=== PATIENT | male | born 1990 | race Caucasian/White ===

== ENCOUNTER 2017-04-02 18:43 | Inpatient (IN) | payer BC ==
[~2017-04-02 18:43] MED LIST: SUCCINYLCHOLINE CHLORIDE INJ 200 MG/10 ML VIAL ONE
--- NOTE | 2017-04-02 19:10 | ER Document Report ---
ED Medical Screen (RME) - General Chief Complaint: Groin Pain Stated Complaint: HERNIA Time Seen by Provider: 04/02/17 19:08 TRAVEL OUTSIDE OF THE [place] IN LAST 30 DAYS: No - HPI Notes: 04/02/17 19:10 Painful left inguinal hernia patient states normally reduce unable to reduce at this time. Nausea vomiting. - Related Data Allergies/Adverse Reactions: Echinacea Allergy (Verified 04/02/17 18:48) Past Medical History - Past Medical History Cardiac Medical History: Denies: Hx Coronary Artery Disease, Hx Hypertension Pulmonary Medical History: Reports: Hx Asthma Endocrine Medical History: Denies: Hx Diabetes Mellitus Type 1, Hx Diabetes Mellitus Type 2 Renal/ Medical History: Denies: Hx Peritoneal Dialysis Traumatic Medical History: Reports: Hx Fractures - ANKLE, ELBOW - Immunizations Immunizations up to date: Yes Hx Diphtheria, Pertussis, Tetanus Vaccination: Yes Review of Systems - Review of Systems Gastrointestinal: Abdominal pain Physical Exam - Vital signs Vitals: Temp Pulse Resp BP Pulse Ox 99.0 F 87 14 132/79 H 99 04/02/17 18:48 04/02/17 18:48 04/02/17 18:48 04/02/17 18:48 04/02/17 18:48 - Respiratory Respiratory status: No respiratory distress Chest status: Nontender Breath sounds: Normal Course - Re-evaluation Re-evalutation: 04/02/17 19:10 I have greeted and performed a rapid initial assessment of this patient. A comprehensive ED assessment and evaluation of the patient, analysis of test results and completion of the medical decision making process will be conducted by additional ED providers. Patient was made a yellow due to lack of ability to examine the patient concern about a reducible hernia - Vital Signs Vital signs: Temp Pulse Resp BP Pulse Ox 99.0 F 87 14 132/79 H 99 04/02/17 18:48 04/02/17 18:48 04/02/17 18:48 04/02/17 18:48 04/02/17 18:48
[2017-04-02] MEDS ORDERED: FENTANYL CITRATE INJ/PF 100 MCG/2 ML AMPUL IV ONE ×2 (19:17→20:05)
--- NOTE | 2017-04-02 19:40 | ER Document Report ---
ED General - General Chief Complaint: Groin Pain Stated Complaint: HERNIA Time Seen by Provider: 04/02/17 19:08 Notes: Patient is a 26-year-old male with past medical history of a left inguinal hernia that has been small and easily reducible in the past who states abruptly became much larger today after he had an episode of coughing. He now describes a constant, dull, throbbing pain to the left inguinal hernia that is in his scrotum at this time. Nothing improves or worsens the pain. He notes associated nausea, diaphoresis but denies any actual vomiting. No history of similar symptoms in the past. Denies any difficulty focal abdominal pain. He has never had surgery for this in the past. TRAVEL OUTSIDE OF THE [place] IN LAST 30 DAYS: No - Related Data Allergies/Adverse Reactions: Echinacea Allergy (Verified 04/02/17 18:48) Past Medical History - General Information source: Patient - Social History Smoking Status: Never Smoker Frequency of alcohol use: None Drug Abuse: None Lives with: Spouse/Significant other Family History: Reviewed & Not Pertinent Patient has suicidal ideation: No Patient has homicidal ideation: No - Past Medical History Cardiac Medical History: Denies: Hx Coronary Artery Disease, Hx Hypertension Pulmonary Medical History: Reports: Hx Asthma Endocrine Medical History: Denies: Hx Diabetes Mellitus Type 1, Hx Diabetes Mellitus Type 2 Renal/ Medical History: Denies: Hx Peritoneal Dialysis Traumatic Medical History: Reports: Hx Fractures - ANKLE, ELBOW - Immunizations Immunizations up to date: Yes Hx Diphtheria, Pertussis, Tetanus Vaccination: Yes Review of Systems - Review of Systems Notes: Constitutional: Negative for fever. HENT: Negative for sore throat. Eyes: Negative for visual changes. Cardiovascular: Negative for chest pain. Respiratory: Negative for shortness of breath. Gastrointestinal: Positive for nausea, positive for hernia pain Genitourinary: Negative for dysuria. Musculoskeletal: Negative for back pain. Skin: Negative for rash. Neurological: Negative for headaches, weakness or numbness. 10 point ROS negative except as marked above and in HPI. Physical Exam - Vital signs Vitals: Temp Pulse Resp BP Pulse Ox 99.0 F 87 14 132/79 H 99 04/02/17 18:48 04/02/17 18:48 04/02/17 18:48 04/02/17 18:48 04/02/17 18:48 Interpretation: Normal Notes: PHYSICAL EXAMINATION: GENERAL: Appears uncomfortable HEAD: Atraumatic, normocephalic. EYES: Pupils equal round and reactive to light, extraocular movements intact, sclera anicteric, conjunctiva are normal. ENT: nares patent, oropharynx clear without exudates. Moist mucous membranes. NECK: Normal range of motion, supple without lymphadenopathy LUNGS: Breath sounds clear to auscultation bilaterally and equal. No wheezes rales or rhonchi. HEART: Regular rate and rhythm without murmurs ABDOMEN: Soft, nontender, normoactive bowel sounds. No guarding, no rebound. No masses appreciated. : There is a very large left inguinal hernia but a soft, easily compressible with some mild tenderness to palpation. EXTREMITIES: Normal range of motion, no pitting or edema. No cyanosis. NEUROLOGICAL: No focal neurological deficits. Moves all extremities spontaneously and on command. PSYCH: Normal mood, normal affect. SKIN: Warm, Dry, normal turgor, no rashes or lesions noted. Course - Re-evaluation Re-evalutation: 04/02/17 19:39 Presentation of a very large left inguinal hernia that is initially irreducible this time. It is not firm, erythematous or especially tender to palpation to suggest active infarction of the bowel at this time. At this time most consistent with an incarcerated but not strangulated hernia. Patient is placed in reverse Trendelenburg position, IV fentanyl be administered. Ice pack has been applied. Will again attempt to reduce shortly. If I am unable to successfully reduce the hernia will contact surgery business administration teacher for surgical management. 04/02/17 20:05 Hernia unable to be reduced after 15 minutes of ice compression, iv analgesia, and direct pressure. Will consult with for surgical management. 04/02/17 20:27 Hernia continues to be irreducible at the bedside. The surgeon has also tried unsuccessfully. Patient will be admitted to the operating room for surgical management - Vital Signs Vital signs: Temp Pulse Resp BP Pulse Ox 99.0 F 87 14 132/79 H 99 04/02/17 18:48 04/02/17 18:48 04/02/17 18:48 04/02/17 18:48 04/02/17 18:48 Discharge - Discharge Clinical Impression: Incarcerated inguinal hernia Condition: Fair Disposition: ADMITTED OBSERVATION Admitting Provider: Surgicalist - [facility] Unit Admitted: OR
[2017-04-02] MEDS ORDERED: RINGERS SOLUTION,LACTATED 1,000 ML IV ONE (20:26)
[2017-04-02] MEDS ORDERED: ONDANSETRON HCL INJ/PF 4 MG/2 ML SDV IV ONE (20:27)
[2017-04-02] MEDS ORDERED: FENTANYL CITRATE INJ/PF 100 MCG/2 ML AMPUL IV PRN ×4 (20:27→21:46)
[2017-04-02] MEDS ORDERED: CEFAZOLIN 1 GM/D5W RTU 50 ML IV ONE (20:48)
[2017-04-02] MEDS ORDERED: CEFAZOLIN 1 GM/D5W RTU 1 GM/50 ML RTUPB IV ONE (20:48)
--- NOTE | 2017-04-02 20:52 | PDOC H&P ---
History of Present Illness Admission Date/PCP: 04/02/17 20:44 Patient complains of: Incarcerated left inguinal hernia History of Present Illness: VIOLA RILEY is a 26 year old male presented to the emergency department with a 6-1/2 hour history of incarcerated left inguinal hernia. Patient has a known history of hernia left inguinal area he was told in the past that he did not need to have it fixed unless it became problematic. Today he coughed hard and the left inguinal hernia bulge and could not be reduced. He was brought to the emergency department where he had a mass in the left inguinal area. Multiple attempts were made to reduce this hernia including Trendelenburg position, ice packs, pain medication, sedation, gentle pressure, and all were unsuccessful. Surgery is consulted. Patient was assessed, found to have an incarcerated inguinal hernia with pain with tenderness, and surgery was recommended tonight. Past Medical History Cardiac Medical History: Denies: Coronary Artery Disease, Hypertension Pulmonary Medical History: Reports: Asthma Endocrine Medical History: Denies: Diabetes Mellitus Type 1, Diabetes Mellitus Type 2 Social History Lives with: Spouse/Significant other Smoking Status: Never Smoker Family History Family History: Reviewed & Not Pertinent Parental Family History Reviewed: Yes Children Family History Reviewed: Yes Sibling(s) Family History Reviewed.: Yes Medication/Allergy Home Medications: Oxycodone HCl/Acetaminophen [Percocet 5-325 mg Tablet] 1 - 2 tab PO Q4H PRN #15 tablet 04/29/16 Penicillin V Potassium [Penicillin Vk 500 mg Tablet] 500 mg PO TID #20 tablet Promethazine HCl [Phenergan 25 mg Tablet] 1 - 2 tab PO Q6H PRN #15 tablet Amoxicillin/Potassium Clav [Augmentin 875-125 Tablet] 1 each PO BID #14 tablet 05/29/16 Meclizine HCl 25 mg PO TID PRN #15 tablet 05/29/16 Allergies/Adverse Reactions: Echinacea Allergy (Verified 04/02/17 18:48) Review of Systems Constitutional: ABSENT: chills, fever(s), headache(s), weight gain, weight loss Eyes: ABSENT: visual disturbances Ears: ABSENT: hearing changes Respiratory: ABSENT: cough, hemoptysis Gastrointestinal: PRESENT: other - Patient had 1 episode of nausea and vomiting after onset of incarceration early this afternoon Genitourinary: PRESENT: as per HPI Musculoskeletal: ABSENT: joint swelling Integumentary: ABSENT: rash, wounds Neurological: ABSENT: abnormal gait, abnormal speech, confusion, dizziness, focal weakness, syncope Psychiatric: ABSENT: anxiety, depression, homidical ideation, suicidal ideation Endocrine: ABSENT: cold intolerance, heat intolerance, polydipsia, polyuria Physical Exam Vital Signs: Temp Pulse Resp BP Pulse Ox 99.0 F 87 14 132/79 H 99 04/02/17 18:48 04/02/17 18:48 04/02/17 18:48 04/02/17 18:48 04/02/17 18:48 General appearance: PRESENT: mild distress Head exam: PRESENT: normocephalic Eye exam: PRESENT: EOMI Ear exam: PRESENT: normal external ear exam Neck exam: PRESENT: full ROM Cardiovascular exam: PRESENT: RRR Pulses: PRESENT: normal carotid pulses, normal radial pulses GI/Abdominal exam: PRESENT: diminished bowel sounds, soft Rectal exam: PRESENT: deferred Gentrourinary exam: PRESENT: other - The penis is circumcised; the right testicle is readily palpable. The left hemiscrotum is full of incarcerated soft tissue. Moderately tender. Multiple attempts were made to reduce it but were unsuccessful. The overlying skin is intact, viable. The left testicle appears intact. Musculoskeletal exam: PRESENT: ambulatory, full ROM Neurological exam: PRESENT: alert, altered, awake Psychiatric exam: PRESENT: appropriate affect Skin exam: PRESENT: intact Assessment & Plan - Diagnosis (1) Incarcerated inguinal hernia Is this a current diagnosis for this admission?: YesPlan: 1. Proceed with operative repair, open left inguinal hernia, with probable mesh insertion, general anesthesia, [facility]. I reviewed the mechanics of the operation, as well as of the results when she was benefits alternatives including bleeding, infection, testicular injury, chronic pain. The patient understands and agrees to proceed. - Time Time Spent: 50 to 70 Minutes Critical Time spent with patient: 15-24 minutes Medications reviewed and adjusted accordingly: Yes Anticipated discharge: Home - Inpatient Certification Based on my medical assessment, after consideration of the patient's comorbidities, presenting symptoms, or acuity I expect that the services needed warrant INPATIENT care.: Yes I certify that my determination is in accordance with my understanding of Medicare's requirements for reasonable and necessary INPATIENT services [42 CFR 412.3e].: Yes Medical Necessity: Need For IV Fluids, Need for Pain Control, Need for IV Antibiotics, Need for Surgery
[2017-04-02] MEDS ORDERED: BUPIVACAINE HCL 0.25 % INJ/PF (2.5 MG/1 ML) 30 ML VIAL ONE (20:58)
[2017-04-02] MEDS ORDERED: BUPIVACAINE INJ/PF LIPOSOME/PF 266 MG/20 ML SDV ONE (20:58)
[2017-04-02] MEDS ORDERED: PROPOFOL INJ 200 MG/20 ML VIAL IV ONE (21:05)
[2017-04-02] MEDS ORDERED: MIDAZOLAM 2 MG/2 ML INJ ONE (21:05)
[2017-04-02] MEDS ORDERED: IBUPROFEN INJ 800 MG/8 ML VIAL IV ONE (21:05)
[2017-04-02] MEDS ORDERED: DEXAMETHASONE SOD PHOSPHATE INJ 4 MG/1 ML VIAL ONE (21:05)
[2017-04-02] MEDS ORDERED: ONDANSETRON HCL INJ/PF 4 MG/2 ML SDV ONE (21:05)
[2017-04-02] MEDS ORDERED: FENTANYL CITRATE INJ/PF 100 MCG/2 ML AMPUL ONE (21:05)
[2017-04-02] MEDS ORDERED: MORPHINE SULFATE 10 MG/ML INJ ONE (21:06)
[2017-04-02] MEDS ORDERED: CEFAZOLIN INJ 1 GM VIAL ONE (21:38)
[2017-04-02] MEDS ORDERED: MORPHINE SULFATE 10 MG/ML INJ IV PRN (21:46)
[2017-04-02] MEDS ORDERED: PROMETHAZINE HCL INJ 25 MG/1 ML VIAL IV PRN ×2 (21:46)
[2017-04-02] MEDS ORDERED: MEPERIDINE HCL/PF INJ 25 MG/1 ML DISP.SYRIN IV PRN (21:46)
[2017-04-02] MEDS ORDERED: OXYCODONE-ACETAMINOPHEN 5-325 MG TABLET PO PRN (21:46)
[2017-04-02] MEDS ORDERED: DIPHENHYDRAMINE HCL 50 MG/ML VIAL IV PRN (21:46)
[2017-04-02] MEDS ORDERED: BUPIVACAINE INJ/PF LIPOSOME/PF 266 MG/20 ML SDV INJ ONE (22:01)
[2017-04-02] MEDS ORDERED: BUPIVACAINE HCL 0.25 % INJ/PF (2.5 MG/1 ML) 30 ML VIAL INJ ONE (22:35)
[2017-04-02] MEDS ORDERED: ONDANSETRON HCL INJ/PF 4 MG/2 ML SDV IV PRN (22:47)
--- NOTE | 2017-04-02 22:57 | Operative Report ---
Operative Report DATE OF SURGERY: 04/02/17 PREOPERATIVE DIAGNOSIS: Incarcerated left inguinal hernia POSTOPERATIVE DIAGNOSIS: Same, indirect OPERATION: 1. Exploration left inguinal region. 2. Reduction of left inguinal hernia. 3. Repair of indirect left inguinal hernia with [facility] Prolene hernia system, large SURGEON: VANI CLAUDIO ANESTHESIA: GA COMPLICATIONS: None ESTIMATED BLOOD LOSS: scant INTRAOPERATIVE FINDINGS: See below PROCEDURE: The patient was seen in the preop holding area with a left inguinal area was marked. The patient was then taken to the operating room where general anesthesia was induced. The left inguinal area was shaved prepped and draped in sterile fashion. Surgical plan on surgical time out conducted. The left inguinal hernia which had previously been incarcerated was now able to be reduced manually. Landmarks were identified, and markings made for planned left inguinal herniorrhaphy incision. The skin was anesthetized with quarter percent Marcaine. A standard left inguinal herniorrhaphy incision was made with a #10 blade. Subcutaneous tissue Larry's fascia divided with electrocautery. Deeper subcutaneous tissue, and fascia anesthetized with quarter percent Marcaine. Subcutaneous tissue overlying the external oblique aponeurosis was exposed. The tissue around the external inguinal ring was opened. The external oblique aponeurosis was opened with a 10 blade, and superior and inferior fascial flaps were developed bluntly. The findings were significant for attenuated cremasteric muscle. The ilioinguinal nerve was identified and spared throughout the dissection. We interrogated the cord contents and identified the large inguinal hernia sac. This was bluntly dissected away from all surrounding tissues. We focused on the more proximal side of the sac and it from the cord structures very carefully under excellent visualization. Eventually I opened up the sac and chased of the proximal component all the way to supportive origin, that was lateral to the inferior epigastric vessels consistent with an indirect inguinal hernia. We continued to dissect all the surrounding tissue free from the sac which was a wide mouth defect. We explored it by palpation found communicating with the peritoneal cavity without any visceral contents. The sac was tied off after rotating it on its base with a 2-0 Vicryl suture. The sac was amputated and passed off to pathology. An associated generous lipoma of the cord was mobilized off of the cord structures to its point of origination lateral to the hernia sac amputation site. It was tied off at its base with 2-0 Vicryl and amputated passed off to pathology We now checked the floor the inguinal canal and it was weak but not effective the remnant distal portion of the hernia sac was now resected from the surrounding cord structures and sent to pathology in the same container A suitable site for placement of the mesh was chosen in the retroperitoneal space which was bluntly lateral to the inferior epigastric vessels. The space was created very effectively. A large [employer] Prolene hernia system was now brought onto the field. The inner component of the mesh was deployed into the retroperitoneal space. The outer component was trimmed the appropriate configuration and sewn to Poupart's ligament and conjoined tendon. An upside down U was created in the mesh at the 6 o'clock position to accommodate the cord structures and the new internal ring was therefore created; the new internal ring was not too tight. At this point without the operation was complete. External oblique aponeurosis closed with 2-0 Vicryl Larry's fascia and skin with 3-0 Vicryl skin glue applied and exparel 20 mL injected into the tissues. Patient tolerated procedure well. Extubated and taken to recover stable condition.
[2017-04-03] MEDS: MORPHINE SULFATE 10 MG/ML INJ IV PRN ×2 (00:22→04:22)
[2017-04-03] MEDS: OXYCODONE-ACETAMINOPHEN 5-325 MG TABLET PO PRN ×2 (08:43→12:36)
[2017-04-03] MEDS ORDERED: OXYCODONE-ACETAMINOPHEN 5-325 MG TABLET PO PRN (08:52)
[2017-04-03 18:38] VITALS: BP 124/57
--- NOTE | 2017-04-04 01:33 | DISCHARGE SUMMARY E ---
Discharge Summary NAME: VIOLA RILEY : 1990 AGE: 26Y ADMITTED: 04/02/2017 DISCHARGED: 04/03/2017 FINAL DIAGNOSIS: Incarcerated left inguinal hernia. PROCEDURE: Reduction of left incarcerated inguinal hernia, repair of indirect left inguinal hernia with [facility] Prolene hernia system. SURGEON: Dr. Godoy SUMMARY: This is a 26-year-old male who had surgery for incarcerated left inguinal hernia on 04/02/2017. The hernia defect was an indirect left inguinal hernia repaired with Prolene mesh. Postoperatively, patient had considerable amount of pain in the left groin. He was able to tolerate a regular diet the next day. The pain is controlled with p.o. pain medications at the time of discharge on 04/03/2017. He was advised not to do any heavy lifting more than 10-15 pounds for the next 2 weeks. He will be seen in the Surgical Clinic in 1-2 weeks, care of Dr. Godoy. Prescription for Percocet was given at the time of his discharge. DICTATING PHYSICIAN: ANN-MARIE TORRES M.D. [id number] PHY#: [id number] ID: [id number] JOB#: [id number] ACCT: [id number] cc:Luz Maria LOPES M.D. >
== END 2017-04-03 19:10 | disposition home or self-care (01) | DRG 352 ==
LOC: ER 18:43 → EH 20:44 → OBSVTOIN 22:47 → 4S 23:50
PROVIDERS: ADMIT Surgery; ATTEND Surgery
PROC: 0YU60JZ Supplement Left Inguinal Region with Synthetic Substitute, Open Approach (ICD-10-PCS; principal; 2017-04-02 21:45)
DX: K40.30 Unilateral inguinal hernia, with obstruction, without gangrene, not specified as recurrent (principal); J45.909 Unspecified asthma, uncomplicated; Z79.899 Other long term (current) drug therapy; Z88.8 Allergy status to other drugs, medicaments and biological substances
CPT/HCPCS: 830; 88302; 96374; 99284; C1781; C9290; J0330; J0690; J1100; J1741; J2250; J2270; J2405; J2704; J3010; J7120

== ENCOUNTER 2017-06-26 17:31 | Emergency (ER) | payer BC ==
--- NOTE | 2017-06-26 18:24 | ER Document Report ---
HPI - HPI Pain Level: 4 - REPRODUCTIVE Reproductive: DENIES: : - DERM Skin Color: Normal Past Medical History - Social History Family History: Reviewed & Not Pertinent - Past Medical History Cardiac Medical History: Denies: Hx Coronary Artery Disease, Hx Hypertension Pulmonary Medical History: Reports: Hx Asthma Endocrine Medical History: Denies: Hx Diabetes Mellitus Type 1, Hx Diabetes Mellitus Type 2 Renal/ Medical History: Denies: Hx Peritoneal Dialysis Traumatic Medical History: Reports: Hx Fractures - ANKLE, ELBOW - Immunizations Immunizations up to date: Yes Hx Diphtheria, Pertussis, Tetanus Vaccination: Yes Vertical Provider Document - INFECTION CONTROL TRAVEL OUTSIDE OF THE [place] IN LAST 30 DAYS: No - RESPIRATORY O2 Sat by Pulse Oximetry: 99 Course - Vital Signs Vital signs: Temp Pulse Resp BP Pulse Ox 97.8 F 61 16 143/96 H 99 06/26/17 17:35 06/26/17 17:35 06/26/17 17:35 06/26/17 17:35 06/26/17 17:35
--- NOTE | 2017-06-26 18:30 | ER Document Report ---
HPI - HPI Patient complains to provider of: landed flat foot playing basketball, heard/ felt cracking Onset: Other - 5 days ago Onset/Duration: Sudden Quality of pain: Throbbing Pain Level: 4 Context: 26-year-old male complaining of left ankle and foot pain after he landed flat- footed and caused a cracking and swelling to his ankle and foot 5 days ago. He has been walking on it with a limp. The swelling is gone down some but the pain is worse. Associated Symptoms: None Exacerbated by: Walking Relieved by: Denies Similar symptoms previously: No Recently seen / treated by doctor: No - ROS ROS below otherwise negative: Yes Systems Reviewed and Negative: Yes All other systems reviewed and negative - REPRODUCTIVE Reproductive: DENIES: : - DERM Skin Color: Normal Past Medical History - General Information source: Patient - Social History Smoking Status: Unknown if Ever Smoked Frequency of alcohol use: None Drug Abuse: None Lives with: Family Family History: Reviewed & Not Pertinent Pulmonary Medical History: Reports: Hx Asthma Renal/ Medical History: Denies: Hx Peritoneal Dialysis Traumatic Medical History: Reports: Hx Fractures - ANKLE, ELBOW Past Surgical History: Reports: Hx Inguinal Hernia - repaired - Immunizations Immunizations up to date: Yes Hx Diphtheria, Pertussis, Tetanus Vaccination: Yes Vertical Provider Document - CONSTITUTIONAL Agree With Documented VS: Yes Exam Limitations: No Limitations - INFECTION CONTROL TRAVEL OUTSIDE OF THE [place] IN LAST 30 DAYS: No - HEENT HEENT: Normocephalic - NECK Neck: Supple - RESPIRATORY O2 Sat by Pulse Oximetry: 99 - MUSCULOSKELETAL/EXTREMETIES Musculoskeletal/Extremeties: MAEW, FROM, Tender - medial maleolus and medial/ dorsl proximal foot, and over the medial tarsals, non tender heel squeeze. achilles intact. FROM left knee and toes. 2+ DP., Edema - NEURO Level of Consciousness: Awake, Alert, Appropriate - DERM Integumentary: Warm, Dry Course - Re-evaluation Re-evalutation: 06/26/17 19:31 xrays are negative per radiologist but I am concerned due to amount of pain 06/26/17 19:36 - Vital Signs Vital signs: Temp Pulse Resp BP Pulse Ox 97.8 F 61 16 143/96 H 99 06/26/17 17:35 06/26/17 17:35 06/26/17 17:35 06/26/17 17:35 06/26/17 18:24 Procedures - Immobilization Left Ankle Time completed: 20:08 Pre-Proc Neuro Vasc Exam: Normal Immobilizer type: Posterior ankle Performed by: PCT Post-Proc Neuro Vasc Exam: Normal Alignment checked and good: Yes Discharge - Discharge Clinical Impression: Injury of left ankle and foot Qualifiers: Encounter type: initial encounter Qualified Code(s): S99.912A - Unspecified injury of left ankle, initial encounter Condition: Good Disposition: HOME, SELF-CARE Instructions: Use of Crutches ([facility]), Sprained Ankle ([facility]), Sprain ([facility]), Temporary Splint ([facility]), Splint Precautions ([facility]) Additional Instructions: call for appointment with the orthopedic doctor this week you may need further images splint crutches, non weight bearing motrin and tylenol for pain Please complete the patient satisfaction survey if you get one, and return it.. If you do not receive a survey, then you can go to the [facility] website, [email or web address] and place your comments about your very good care. Thank you very much. It was a pleasure being your medical provider today. Prescriptions: Ibuprofen [Motrin 800 mg Tablet] 800 mg PO Q8HP PRN #30 tablet PRN Reason: Referrals: RAJAT RICHMOND MD [ACTIVE STAFF] - Follow up as needed
--- NOTE | 2017-06-26 19:21 | RADIOLOGY REPORT (SQ) ---
EXAM DESCRIPTION: ANKLE LEFT COMPLETE COMPLETED DATE/TIME: 06/26/2017 7:10 pm REASON FOR STUDY: injured 5 days ago COMPARISON: None. NUMBER OF VIEWS: Three views. TECHNIQUE: AP, lateral, and oblique radiographic images acquired of the left ankle. LIMITATIONS: None. FINDINGS: MINERALIZATION: Normal. BONES: No acute fracture or dislocation. No worrisome bone lesions. JOINTS: No effusions. SOFT TISSUES: No soft tissue swelling. No foreign body. OTHER: No other significant finding. IMPRESSION: NEGATIVE STUDY OF THE LEFT ANKLE. NO RADIOGRAPHIC EVIDENCE OF ACUTE INJURY. TECHNICAL DOCUMENTATION: JOB ID: [id number] [employer]- All Rights Reserved
--- NOTE | 2017-06-26 19:22 | RADIOLOGY REPORT (SQ) ---
EXAM DESCRIPTION: FOOT LEFT COMPLETE COMPLETED DATE/TIME: 06/26/2017 7:10 pm REASON FOR STUDY: injured 5 days ago COMPARISON: None. NUMBER OF VIEWS: Three views. TECHNIQUE: AP, lateral and oblique radiographic images acquired of the left foot. LIMITATIONS: None. FINDINGS: MINERALIZATION: Normal. BONES: No acute fracture or dislocation. No worrisome bone lesions. JOINTS: No effusions. SOFT TISSUES: No soft tissue swelling. No foreign body. OTHER: No other significant finding. IMPRESSION: NEGATIVE STUDY OF THE LEFT FOOT. NO RADIOGRAPHIC EVIDENCE OF ACUTE INJURY. TECHNICAL DOCUMENTATION: JOB ID: [id number] [employer]- All Rights Reserved
[2017-06-26 20:32] VITALS: BP 140/83
== END 2017-06-26 20:30 | disposition home or self-care (01) ==
LOC: ER 17:31
PROC: 2W3RX1Z Immobilization of Left Lower Leg using Splint (ICD-10-PCS; principal; 2017-06-26)
DX: S99.912A Unspecified injury of left ankle, initial encounter (principal); X58.XXXA Exposure to other specified factors, initial encounter; Y93.67 Activity, basketball; M25.572 Pain in left ankle and joints of left foot; M79.672 Pain in left foot; J45.909 Unspecified asthma, uncomplicated
CPT/HCPCS: 99283

== ENCOUNTER 2017-10-23 19:57 | Emergency (ER) | payer SELFPAY ==
[2017-10-23] MEDS ORDERED: NORMAL SALINE 1000 ML 1,000 ML IV ONE (20:46)
--- NOTE | 2017-10-23 20:48 | ER Document Report ---
ED Medical Screen (RME) - General Chief Complaint: Abdominal and groin pain Stated Complaint: ABDOMINAL PAIN Time Seen by Provider: 10/23/17 20:46 Notes: Patient had a left inguinal hernia repair here in February 2017. He states he is now having pain over the incision site. He states he is also been told that he has a right inguinal hernia and is been having pain and bulging on that side. He states in addition a month and a half ago he started to have loose stool and ever since he has had no more formed stools for the last 1-1/2 months. He also states that he constantly leaks stool for the last month and a half. TRAVEL OUTSIDE OF THE [place] IN LAST 30 DAYS: No - Related Data Allergies/Adverse Reactions: Echinacea Allergy (Verified 04/02/17 18:48) Past Medical History - Past Medical History Cardiac Medical History: Denies: Hx Coronary Artery Disease, Hx Hypertension Pulmonary Medical History: Reports: Hx Asthma Endocrine Medical History: Denies: Hx Diabetes Mellitus Type 1, Hx Diabetes Mellitus Type 2 Renal/ Medical History: Denies: Hx Peritoneal Dialysis Traumatic Medical History: Reports: Hx Fractures - ANKLE, ELBOW Past Surgical History: Reports: Hx Inguinal Hernia - repaired - Immunizations Immunizations up to date: Yes Hx Diphtheria, Pertussis, Tetanus Vaccination: Yes Physical Exam - Vital signs Vitals: Temp Pulse Resp BP Pulse Ox 98.6 F 73 16 140/87 H 99 10/23/17 20:29 10/23/17 20:29 10/23/17 20:29 10/23/17 20:29 10/23/17 20:29 Course - Vital Signs Vital signs: Temp Pulse Resp BP Pulse Ox 98.6 F 73 16 140/87 H 99 10/23/17 20:29 10/23/17 20:29 10/23/17 20:29 10/23/17 20:29 10/23/17 20:29
[2017-10-23 21:30] LABS: APPEARANCE,URINE CLEAR; BILIRUBIN,URINE NEGATIVE (NEGATIVE); GLUCOSE, URINE NEGATIVE (NEGATIVE); KETONES,URINE NEGATIVE (NEGATIVE); LEUKOCYTE ESTERASE,URINE NEGATIVE (NEGATIVE); NITRITE,URINE NEGATIVE (NEGATIVE); PROTEIN,URINE NEGATIVE (NEGATIVE); URINE SPECIFIC GRAVITY 1.023; UROBILINOGEN,URINE NEGATIVE mg/dL (<2.0)
[2017-10-23 21:42] LABS: ABSOLUTE EOSINOPHILS # (AUTO) 0.1 10^3/uL (0.0-0.6); ABSOLUTE LYMPHOCYTES (AUTO) 1.5 10^3/uL (0.5-4.7); ABSOLUTE MONOCYTES (AUTO) 0.5 10^3/uL (0.1-1.4); ABSOLUTE NEUT (AUTO) 3.4 10^3/uL (1.7-8.2); BASOPHILS % (AUTO) 0.8 % (0-2); EOSINOPHILS % (AUTO) 1.3 % (0-6); HEMATOCRIT 45.7 % (37.9-51.0); HEMOGLOBIN 15.6 g/dL (13.5-17.0); HGB HCT DIFFERENCE 1.1; LYMPHOCYTES % (AUTO) 26.6 % (13-45); MEAN CORPUSCULAR HEMOGLOBIN 30.8 pg (27.0-33.4); MEAN CORPUSCULAR HGB CONC 34.1 g/dL (32.0-36.0); MEAN CORPUSCULAR VOLUME 90 fl (80-97); MONOCYTES % (AUTO) 9.5 % (3-13); RED BLOOD COUNT 5.05 10^6/uL (4.35-5.55); RED CELL DISTRIBUTION WIDTH 13.4 % (11.5-14.0); SEGMENTED NEUTROPHILS % (AUTO) 61.8 % (42-78); WHITE BLOOD COUNT 5.6 10^3/uL (4.0-10.5)
[2017-10-23 21:53] LABS: ALANINE AMINOTRANSFERASE 57 U/L (21-72); ALBUMIN 4.7 g/dL (3.5-5.0); ALKALINE PHOSPHATASE 64 U/L (38-126); ANION GAP 14 (5-19); ASPARTATE AMINO TRANSFERASE 28 U/L (17-59); BILIRUBIN,DIRECT 0.3 mg/dL (0.0-0.4); BILIRUBIN,TOTAL 0.8 mg/dL (0.2-1.3); BLOOD UREA NITROGEN 15 mg/dL (7-20); CALCIUM 9.3 mg/dL (8.4-10.2); CARBON DIOXIDE 29 mmol/L (22-30); CHLORIDE 101 mmol/L (98-107); CREATININE RESULT 0.91 mg/dL (0.52-1.25); GLUCOSE 73 mg/dL (75-110); POTASSIUM 4.1 mmol/L (3.6-5.0); SODIUM 143.8 mmol/L (137-145)
--- NOTE | 2017-10-23 21:58 | ER Document Report ---
ED GI/ - General Chief Complaint: Abdominal and groin pain Stated Complaint: ABDOMINAL PAIN Time Seen by Provider: 10/23/17 20:46 Mode of Arrival: Ambulatory Information source: Patient Notes: 26-year-old male complaining of left lower quadrant abdominal pain, left groin pain near the hernia repair last year, and right groin pain. He is concerned that the right mild hernia that he had is getting worse. No scrotal or testicular pain. He has been having alternating constipation and diarrhea and is concerned about that. No fever or chills. No nausea or vomiting. TRAVEL OUTSIDE OF THE [place] IN LAST 30 DAYS: No - Related Data Allergies/Adverse Reactions: Echinacea Allergy (Verified 04/02/17 18:48) Past Medical History - General Information source: Patient - Social History Smoking Status: Current Every Day Smoker Chew tobacco use (# tins/day): No Frequency of alcohol use: Occasional Drug Abuse: Marijuana Lives with: Family Family History: Reviewed & Not Pertinent Patient has suicidal ideation: No Patient has homicidal ideation: No Pulmonary Medical History: Reports: Hx Asthma Renal/ Medical History: Denies: Hx Peritoneal Dialysis Traumatic Medical History: Reports: Hx Fractures - ANKLE, ELBOW Past Surgical History: Reports: Hx Inguinal Hernia - repaired - Immunizations Immunizations up to date: Yes Hx Diphtheria, Pertussis, Tetanus Vaccination: Yes Review of Systems - Review of Systems Constitutional: No symptoms reported EENT: No symptoms reported Cardiovascular: No symptoms reported Respiratory: No symptoms reported Gastrointestinal: See HPI Genitourinary: No symptoms reported Male Genitourinary: No symptoms reported Musculoskeletal: No symptoms reported Skin: No symptoms reported Hematologic/Lymphatic: No symptoms reported Neurological/Psychological: No symptoms reported Physical Exam - Vital signs Vitals: Temp Pulse Resp BP Pulse Ox 98.6 F 73 16 140/87 H 99 10/23/17 20:29 10/23/17 20:29 10/23/17 20:29 10/23/17 20:29 10/23/17 20:29 Interpretation: Normal - General General appearance: Appears well, Alert - HEENT Head: Normocephalic, Atraumatic Eyes: Normal Pupils: PERRL Neck: Supple. No: Lymphadenopathy - Respiratory Respiratory status: No respiratory distress Chest status: Nontender Breath sounds: Normal Chest palpation: Normal - Cardiovascular Rhythm: Regular Heart sounds: Normal auscultation Murmur: No - Abdominal Inspection: Normal Distension: No distension Bowel sounds: Normal Tenderness: Tender - minimal LLQ, non tender inquinal areas. Organomegaly: No organomegaly - Genitourinary Inspection: Normal Tenderness: Nontender Scrotum: Normal - Back Back: Normal, Nontender. No: CVA tenderness - Extremities General upper extremity: Normal inspection, Nontender, Normal color, Normal ROM , Normal temperature General lower extremity: Normal inspection, Nontender, Normal color, Normal ROM , Normal temperature, Normal weight bearing. No: Hector's sign - Neurological Neuro grossly intact: Yes Cognition: Normal Orientation: AAOx4 Nikolai Coma Scale Eye Opening: Spontaneous [place] Coma Scale Verbal: Oriented [place] Coma Scale Motor: Obeys Commands Nikolai Coma Scale Total: 15 Speech: Normal Motor strength normal: LUE, RUE, LLE, RLE Sensory: Normal - Psychological Associated symptoms: Normal affect, Normal mood - Skin Skin Temperature: Warm Skin Moisture: Dry Skin Color: Normal Skin irregularity: negative: Rash Course - Re-evaluation Re-evalutation: 10/24/17 Labs normal. Non tender after IV fluid, will give referral to gastroenterology 10/24/17 03:31 - Vital Signs Vital signs: Temp Pulse Resp BP Pulse Ox 98.1 F 63 16 133/72 H 98 10/24/17 00:11 10/24/17 00:11 10/23/17 20:29 10/24/17 00:11 10/24/17 00:11 - Laboratory Result Diagrams: 10/23/17 21:25 10/23/17 21:25 Laboratory results interpreted by me: 10/23/17 21:25 Glucose 73 L Discharge - Discharge Clinical Impression: Left lower quadrant abdominal pain, Bilateral groin pain Irritable bowel Qualifiers: Irritable bowel syndrome type: with both diarrhea and constipation Qualified Code(s): K58.2 - Mixed irritable bowel syndrome Condition: Good Disposition: HOME, SELF-CARE Instructions: Abdominal Pain ([facility]), Constipation ([facility]), Diarrhea, Nonspecific ( [facility]), Irritable Bowel Syndrome ([facility]) Additional Instructions: see spares scheduler if you continue to have constipation, diarrhea problems to er if increased pain copy of labs given to you drink plenty of fluids Forms: Return to Work Referrals: LEXII GOEMZ MD [ACTIVE STAFF] - Follow up as needed
[2017-10-24 00:20] VITALS: BP 133/72
== END 2017-10-24 00:11 | disposition home or self-care (01) ==
LOC: ER 19:57
DX: K58.2 Mixed irritable bowel syndrome (principal); R10.32 Left lower quadrant pain; F17.200 Nicotine dependence, unspecified, uncomplicated
CPT/HCPCS: 99284; 96360; 36415; 85025; 80053; 81001; J7030

== ENCOUNTER 2018-04-14 17:53 | Emergency (ER) | payer SELFPAY ==
--- NOTE | 2018-04-14 18:41 | ER Document Report ---
ED Medical Screen (RME) - General Chief Complaint: Ankle Pain Stated Complaint: FALL / LEFT ANKLE INJURY Time Seen by Provider: 04/14/18 18:41 Mode of Arrival: Ambulatory Information source: Patient Notes: This is a 27-year-old man that presents to the emergency room with left ankle pain. He was in [place] for the weekend and on early Sunday morning (at 3 AM) he was jumping over a fence and he landed on his left lower extremity which inverted and then everted and he collapsed to the ground immediately. He has pain to the left ankle. There is swelling. Injury occurred: Over 36 hours ago Past medical history: None Medicines: None TRAVEL OUTSIDE OF THE [place] IN LAST 30 DAYS: No - HPI Onset: Just prior to arrival Onset/Duration: Gradual Quality of pain: Dull Severity: Moderate Pain Level: 2 Associated Symptoms: denies: Chest pain, Shortness of breath Exacerbated by: Movement Relieved by: Denies Similar symptoms previously: No Recently seen / treated by doctor: No - Related Data Smoking: Non-smoker Frequency of alcohol use: None Drug Abuse: None Allergies/Adverse Reactions: Echinacea Allergy (Verified 04/14/18 17:55) Past Medical History - General Information source: Patient - Social History Cigarette use (# per day): No Chew tobacco use (# tins/day): No Frequency of alcohol use: Occasional Drug Abuse: None Lives with: Family Family history: None - Past Medical History Cardiac Medical History: Denies: Hx Coronary Artery Disease, Hx Hypertension Pulmonary Medical History: Reports: Hx Asthma Endocrine Medical History: Denies: Hx Diabetes Mellitus Type 1, Hx Diabetes Mellitus Type 2 Renal/ Medical History: Denies: Hx Peritoneal Dialysis Traumatic Medical History: Reports: Hx Fractures - ANKLE, ELBOW Past Surgical History: Reports: Hx Abdominal Surgery - hernia repair, Hx Inguinal Hernia - repaired - Immunizations Immunizations up to date: Yes Hx Diphtheria, Pertussis, Tetanus Vaccination: Yes Review of Systems - Review of Systems Constitutional: denies: Chills, Fever EENT: No symptoms reported Cardiovascular: No symptoms reported Respiratory: No symptoms reported Gastrointestinal: No symptoms reported Genitourinary: No symptoms reported Male Genitourinary: No symptoms reported Musculoskeletal: See HPI Skin: No symptoms reported Hematologic/Lymphatic: No symptoms reported Neurological/Psychological: No symptoms reported Physical Exam - Vital signs Vitals: Temp Pulse Resp BP Pulse Ox 98.5 F 71 16 132/90 H 98 04/14/18 18:00 04/14/18 18:00 04/14/18 18:00 04/14/18 18:00 04/14/18 18:00 Notes: Physical exam: GENERAL: 27-year-old man, alert and oriented 3, no acute distress HEAD: Atraumatic, normocephalic. EXTREMITIES: Left knee: Full range of motion, no tenderness. Left tib-fib: No tenderness to palpation over the proximal fibula left ankle: Positive swelling both laterally and medially. Patient does have tenderness over the malleoli bilaterally. There is no obvious crepitus. He does have some tenderness over the midfoot without crepitus or deformity. Good cap refill. Good sensation. Good DP pulse SKIN: Warm, Dry, normal turgor, no rashes or lesions noted. Course - Vital Signs Vital signs: Temp Pulse Resp BP Pulse Ox 98.6 F 66 15 137/86 H 99 04/14/18 19:34 04/14/18 19:34 04/14/18 19:34 04/14/18 19:34 04/14/18 19:34 - Diagnostic Test Radiology reviewed: Image reviewed, Reports reviewed - X-ray showed no obvious fracture Doctor's Discharge - Discharge Clinical Impression: High-grade ankle sprain Condition: Stable Disposition: HOME, SELF-CARE Additional Instructions: Recommendations: Continue nonweightbearing using the crutches. Keep the foot elevated when resting. Continue with ice over the ankle to reduce the inflammation. Ibuprofen 400 mg every 6 hours Take the Percocet for pain not relieved by the ibuprofen Follow-up with the orthopedic surgeon in the next week as discussed. I put the number on the chart. Take Zofran for nausea The pain medicine you're taking prescribed as a narcotic. There are several important things you should know about this medicine: 1. This medicine contains Tylenol: It is important that you do not take Tylenol (or acetaminophen) while on this medicine. Tylenol is metabolized by the liver and taking too much Tylenol (acetaminophen) can lay to liver damage and even liver failure. 2. Taking narcotics for too long can lead to physical and mental dependence. Take this medicine only if really needed and in the lowest quantity to achieve pain relief. 3. Do not drink alcohol while on this medicine. Alcohol interacts with narcotics and the combination can be dangerous. 4. Do not drive or operate machinery while on this medicine. 5. Narcotics do cause constipation, so drink plenty of fluids and daily stool softeners. Prescriptions: Oxycodone HCl/Acetaminophen [Percocet 5-325 mg Tablet] 1 - 2 tab PO ASDIR PRN # 25 tablet PRN Reason: Referrals: RAJAT RICHMOND MD [ACTIVE STAFF] - Follow up as needed (This is the number for the orthopedic office: Call the office and tell the innersole maker that the ER doctor wanted you soon because he was concerned about a high-grade ankle sprain that may be unstable.)
--- NOTE | 2018-04-14 19:16 | RADIOLOGY REPORT (SQ) ---
EXAM DESCRIPTION: ANKLE LEFT COMPLETE COMPLETED DATE/TIME: 04/14/2018 7:04 pm REASON FOR STUDY: left ankle COMPARISON: None. NUMBER OF VIEWS: Three views. TECHNIQUE: AP, lateral, and oblique radiographic images acquired of the left ankle. LIMITATIONS: None. FINDINGS: MINERALIZATION: Normal. BONES: No acute fracture or dislocation. No worrisome bone lesions. JOINTS: No effusions. SOFT TISSUES: No soft tissue swelling. No foreign body. OTHER: No other significant finding. IMPRESSION: NO RADIOGRAPHIC EVIDENCE OF ACUTE INJURY. TECHNICAL DOCUMENTATION: JOB ID: [id number] [place]-72 2010 [employer]- All Rights Reserved Reading location - IP/workstation name: [email or web address]
--- NOTE | 2018-04-14 19:18 | RADIOLOGY REPORT (SQ) ---
EXAM DESCRIPTION: FOOT LEFT COMPLETE COMPLETED DATE/TIME: 04/14/2018 7:04 pm REASON FOR STUDY: pain over tarsals medially COMPARISON: None. NUMBER OF VIEWS: Three views. TECHNIQUE: AP, lateral and oblique radiographic images acquired of the left foot. LIMITATIONS: None. FINDINGS: MINERALIZATION: Normal. BONES: No acute fracture or dislocation. No worrisome bone lesions. JOINTS: No effusions. SOFT TISSUES: No soft tissue swelling. No foreign body. OTHER: No other significant finding. IMPRESSION: NO RADIOGRAPHIC EVIDENCE OF ACUTE INJURY. TECHNICAL DOCUMENTATION: JOB ID: [id number] [place]-72 2010 [employer]- All Rights Reserved Reading location - IP/workstation name: [employer]
[2018-04-14] MEDS ORDERED: OXYCODONE-ACETAMINOPHEN 5-325 MG TABLET PO ONE (19:49)
[2018-04-14] MEDS ORDERED: ONDANSETRON ODT 4 MG TAB (6 TAB/ER DISP) PO PRN (19:49)
[2018-04-14 19:56] VITALS: BP 137/86
== END 2018-04-14 19:34 | disposition home or self-care (01) ==
LOC: ER 17:53
DX: S93.402A Sprain of unspecified ligament of left ankle, initial encounter (principal); M25.572 Pain in left ankle and joints of left foot; M79.89 Other specified soft tissue disorders; X58.XXXA Exposure to other specified factors, initial encounter; J45.909 Unspecified asthma, uncomplicated
CPT/HCPCS: 99283; 73610; 73630; L1902

== ENCOUNTER 2019-02-11 13:11 | Emergency (ER) | payer SELFPAY ==
--- NOTE | 2019-02-11 13:27 | ER Document Report ---
ED Medical Screen (RME) - General Chief Complaint: Abdominal Pain Stated Complaint: ABDOMINAL PAIN Time Seen by Provider: 02/11/19 13:18 TRAVEL OUTSIDE OF THE [place] IN LAST 30 DAYS: No - HPI Notes: 02/11/19 13:26 Patient is a 28-year-old male that presents to the emergency department for chief complaint of lower abdominal pain and fecal incontinence. Patient states he had a left inguinal hernia surgery repair about 2 years ago. He states about 9 months after his surgery he began having lower abdominal pain. He states it is bilateral but mostly located suprapubic the pain has been constant for over a year. He states he has had intermittent fecal incontinence which has become progressively worse. Now he states daily he is having incontinence of his bowels. He denies associated fevers or chills, injury, saddle anesthesia, scrotal pain and edema. He does endorse pain with sexual intercourse ROS: GENERAL: Denies fever of chills CV: Denies chest pain PHYSICAL EXAMINATION: GENERAL: Well-appearing, well-nourished and in no acute distress. HEAD: Atraumatic, normocephalic. EYES: Pupils equal round extraocular movements intact, conjunctiva are normal. ENT: Nares patent NECK: Normal range of motion LUNGS: No respiratory distress Musculoskeletal: Normal range of motion NEUROLOGICAL: Normal speech, normal gait. PSYCH: Normal mood, normal affect. MDM: Patient seen and examined for rapid initial assessment. Vital signs reviewed. A comprehensive ED assessment and evaluation of the patient, analysis of test results and completion of the medical decision making process will be conducted by additional ED providers. - Related Data Allergies/Adverse Reactions: Echinacea Allergy (Verified 02/11/19 13:13) Past Medical History - Social History Chew tobacco use (# tins/day): No Frequency of alcohol use: None Drug Abuse: None Family history: None - Past Medical History Cardiac Medical History: Denies: Hx Coronary Artery Disease, Hx Hypertension Pulmonary Medical History: Reports: Hx Asthma Endocrine Medical History: Denies: Hx Diabetes Mellitus Type 1, Hx Diabetes Mellitus Type 2 Renal/ Medical History: Denies: Hx Peritoneal Dialysis Traumatic Medical History: Reports: Hx Fractures - ANKLE, ELBOW Past Surgical History: Reports: Hx Abdominal Surgery - hernia repair, Hx Inguinal Hernia - repaired - Immunizations Immunizations up to date: Yes Hx Diphtheria, Pertussis, Tetanus Vaccination: Yes Physical Exam - Vital signs Vitals: Temp Pulse Resp BP Pulse Ox 98.2 F 75 18 151/89 H 99 02/11/19 13:14 02/11/19 13:14 02/11/19 13:14 02/11/19 13:14 02/11/19 13:14 Course - Vital Signs Vital signs: Temp Pulse Resp BP Pulse Ox 98.2 F 75 18 151/89 H 99 02/11/19 13:14 02/11/19 13:14 02/11/19 13:14 02/11/19 13:14 02/11/19 13:14
[2019-02-11 13:52] LABS: ABSOLUTE EOSINOPHILS # (AUTO) 0.1 10^3/uL (0.0-0.6); ABSOLUTE LYMPHOCYTES (AUTO) 1.3 10^3/uL (0.5-4.7); ABSOLUTE MONOCYTES (AUTO) 0.4 10^3/uL (0.1-1.4); ABSOLUTE NEUT (AUTO) 3.4 10^3/uL (1.7-8.2); BASOPHILS % (AUTO) 0.8 % (0-2); EOSINOPHILS % (AUTO) 1.2 % (0-6); HEMATOCRIT 47.3 % (37.9-51.0); HEMOGLOBIN 16.1 g/dL (13.5-17.0); LYMPHOCYTES % (AUTO) 24.6 % (13-45); MEAN CORPUSCULAR HEMOGLOBIN 30.3 pg (27.0-33.4); MEAN CORPUSCULAR HGB CONC 33.9 g/dL (32.0-36.0); MEAN CORPUSCULAR VOLUME 89 fl (80-97); MONOCYTES % (AUTO) 7.9 % (3-13); PLATELET COUNT 253 10^3/uL (150-450); RED CELL DISTRIBUTION WIDTH 13.6 % (11.5-14.0); SEGMENTED NEUTROPHILS % (AUTO) 65.5 % (42-78); TOTAL CELLS COUNTED % (AUTO) 100 %; WHITE BLOOD COUNT 5.2 10^3/uL (4.0-10.5)
[2019-02-11 13:57] LABS: APPEARANCE,URINE SLIGHTLY-CLOUDY; BILIRUBIN,URINE NEGATIVE (NEGATIVE); COLOR,URINE YELLOW; GLUCOSE, URINE NEGATIVE (NEGATIVE); KETONES,URINE NEGATIVE (NEGATIVE); LEUKOCYTE ESTERASE,URINE NEGATIVE (NEGATIVE); NITRITE,URINE NEGATIVE (NEGATIVE); PROTEIN,URINE NEGATIVE (NEGATIVE); URINE SPECIFIC GRAVITY 1.023
[2019-02-11 14:02] LABS: ALANINE AMINOTRANSFERASE 48 U/L (21-72); ALBUMIN 4.9 g/dL (3.5-5.0); ALKALINE PHOSPHATASE 70 U/L (38-126); ANION GAP 10 (5-19); ASPARTATE AMINO TRANSFERASE 33 U/L (17-59); BILIRUBIN,DIRECT 0.2 mg/dL (0.0-0.4); BILIRUBIN,TOTAL 0.8 mg/dL (0.2-1.3); BLOOD UREA NITROGEN 14 mg/dL (7-20); CALCIUM 10.1 mg/dL (8.4-10.2); CARBON DIOXIDE 29 mmol/L (22-30); CHLORIDE 101 mmol/L (98-107); GLUCOSE 91 mg/dL (75-110); POTASSIUM 4.4 mmol/L (3.6-5.0); SODIUM 139.9 mmol/L (137-145); TOTAL PROTEIN 7.5 g/dL (6.3-8.2)
[2019-02-11 15:18] LABS: CHLAM PCR NOT DETECTED (NOT DETECT); GON PCR NOT DETECTED (NOT DETECT)
[2019-02-11] MEDS ORDERED: DICYCLOMINE HCL 20 MG TABLET PO ONE (15:31)
--- NOTE | 2019-02-11 15:38 | ER Document Report ---
ED General - General Chief Complaint: Abdominal Pain Stated Complaint: ABDOMINAL PAIN Time Seen by Provider: 02/11/19 13:18 Mode of Arrival: Ambulatory Information source: Patient TRAVEL OUTSIDE OF THE [place] IN LAST 30 DAYS: No - HPI Patient complains to provider of: Low abdominal pain, fecal incontinence Onset: Other - Symptoms for over a year Onset/Duration: Gradual Quality of pain: Cramping Severity: Severe Pain Level: 4 Associated symptoms: denies: Chills, Fever Exacerbated by: Denies Relieved by: Denies Similar symptoms previously: No Recently seen / treated by doctor: No Notes: 28-year-old male coming in today with low abdominal/pelvic pain that has been going on for a little over a year. Pain is always present. Very constipated. When he moves his bowels the stool is flat. Said no fevers or shaking chills. Some nausea without vomiting. Blood only when he is wiping himself frequently. - Related Data Allergies/Adverse Reactions: Echinacea Allergy (Verified 02/11/19 13:13) Past Medical History - General Information source: Patient - Social History Smoking Status: Unknown if Ever Smoked Chew tobacco use (# tins/day): No Frequency of alcohol use: None Drug Abuse: None Family History: Reviewed & Not Pertinent Patient has suicidal ideation: No Patient has homicidal ideation: No - Past Medical History Cardiac Medical History: Denies: Hx Coronary Artery Disease, Hx Hypertension Pulmonary Medical History: Reports: Hx Asthma Endocrine Medical History: Denies: Hx Diabetes Mellitus Type 1, Hx Diabetes Mellitus Type 2 Renal/ Medical History: Denies: Hx Peritoneal Dialysis Traumatic Medical History: Reports: Hx Fractures - ANKLE, ELBOW Past Surgical History: Reports: Hx Abdominal Surgery - hernia repair, Hx Inguinal Hernia - repaired - Immunizations Immunizations up to date: Yes Hx Diphtheria, Pertussis, Tetanus Vaccination: Yes Review of Systems - Review of Systems Notes: Constitutional: No fevers. No chills. EENT: No eye redness. No eye pain. No ear pain. No sore throat. Cardiovascular: No chest pain. No palpitations. Respiratory: No cough. No shortness of breath. No respiratory distress. Gastrointestinal: + abdominal pain. Negative for nausea and vomiting. Negative for diarrhea. Positive for occasional fecal incontinence Genitourinary: Atraumatic. No lesions. No pain. No discharge. Musculoskeletal: Atraumatic. No swelling. No deformities. Skin: No rash or lesions. Lymphatic: No swollen lymph nodes. Neurologic: No headache. No syncope. Psychiatric: No suicidal or homicidal ideation. Physical Exam - Vital signs Vitals: Temp Pulse Resp BP Pulse Ox 98.2 F 75 18 151/89 H 99 02/11/19 13:14 02/11/19 13:14 02/11/19 13:14 02/11/19 13:14 02/11/19 13:14 - Notes Notes: General: Well-developed, well-nourished. In no acute distress. Non-toxic appearing. Cardiac: Well-perfused. Regular rate and rhythm. No murmurs, rubs, or gallops. Pulmonary: No respiratory distress. No cyanosis. Bilateral lung mcgill are clear to auscultation. Abdominal: Non-distended. Non-rigid. Bowels sounds are present in all four quadrants. No guarding or rebound. Tenderness around the suprapubic region. Left and right inguinal regions examined and are negative for inguinal hernias. Rectal exam was attempted but patient was in too much pain to tolerate. Sphincter tone was quite strong HEENT: Head is atraumatic. Conjunctivae not reddened. No tearing. PERRL. EOMI. Orbits atraumatic. No periorbital swelling or erythema. Oropharynx is without erythema, swelling, or exudates. Neck: Supple. No adenopathy. No meningismus. Dermatologic: Warm with good turgor. No rash. Atraumatic. Chest: Atraumatic. No chest wall tenderness to palpation. Musculoskeletal: Moves all extremities well. No range of motion deficits. no muscular or joint tenderness. No paraspinal muscle tenderness. no midline spinal tenderness or step-off. Genitourinary: Normal external genitalia. Exam is negative for inguinal hernia. No swelling or erythema of the testicles. Neurologic: No gross neurologic deficits. Psychiatric: Normal mood. Course - Re-evaluation Re-evalutation: 02/11/19 15:38 This is most likely going to be a GI follow-up. Will check a CT to see if patient has any sign of bowel obstruction secondary to surgical adhesions. Also check and make sure there is no sign of any Like a colitis is causing him to lose control of his bowels. He has an extremely strong rectal tone. Question possible constipation, mass, IBS with constipation. Given the length of his symptoms he will probably need to follow-up with GI and be considered for a scope. - Vital Signs Vital signs: Temp Pulse Resp BP Pulse Ox 98.2 F 75 18 151/89 H 99 02/11/19 13:14 02/11/19 13:14 02/11/19 13:14 02/11/19 13:14 02/11/19 13:14 - Laboratory Result Diagrams: 02/11/19 13:26 02/11/19 13:26 Laboratory results interpreted by me: 02/11/19 13:26 Urine Urobilinogen 2.0 H - Diagnostic Test Radiology reviewed: Reports reviewed Discharge - Discharge Clinical Impression: Elevated blood pressure reading Abdominal pain Qualifiers: Abdominal location: unspecified location Qualified Code(s): R10.9 - Unspecified abdominal pain Fecal incontinence Qualifiers: Fecal incontinence type: unspecified Qualified Code(s): R15.9 - Full incontinence of feces Condition: Good Disposition: HOME, SELF-CARE Instructions: Abdominal Pain ([facility]), Antinausea Medication ([facility]), Oral Narcotic Medication ([facility]) Additional Instructions: You can try to use different [id number] constipation remedies to help with your constipation. In the end, he will need to see intestinal specialist to find out why you are having so much trouble with pain, constipation, and fecal incontinence. Prescriptions: Dicyclomine HCl [Bentyl 20 mg Tablet] 20 mg PO Q6HP PRN #20 tablet PRN Reason: Tramadol HCl/Acetaminophen [Ultracet 37.5 mg/325 mg Tablet] 1 each PO Q6HP PRN #12 tablet PRN Reason: Ondansetron [Zofran Odt 4 mg Tablet] 1 - 2 tab PO Q4H PRN #15 tab.rapdis PRN Reason: For Nausea/Vomiting Forms: Elevated Blood Pressure, Return to Work Referrals: AMBER ASKEW MD [ACTIVE STAFF] - Follow up tomorrow
--- NOTE | 2019-02-11 16:35 | RADIOLOGY REPORT (SQ) ---
EXAM DESCRIPTION: CT ABD/PELVIS WITH IV ONLY COMPLETED DATE/TIME: 02/11/2019 4:17 pm REASON FOR STUDY: low abdominal pain COMPARISON: None. TECHNIQUE: CT scan of the abdomen and pelvis performed using helical scanning technique with dynamic intravenous contrast injection. No oral contrast. Images reviewed with lung, soft tissue, and bone windows. Reconstructed coronal and sagittal MPR images reviewed. Delayed images for evaluation of the urinary system also acquired. All images stored on PACS. All CT scanners at this facility use dose modulation, iterative reconstruction, and/or weight based d osing when appropriate to reduce radiation dose to as low as reasonably achievable (ALARA). [facility]: Dose Right [facility]: CareDose [facility]: Dose Right [facility]: Teradose 4D [facility]: Nanosys CONTRAST TYPE AND DOSE: contrast/concentration: Isovue 350.00 mg/ml; Total Contrast Delivered: 100.0 ml; Total Saline Delivered: 72.0 ml RENAL FUNCTION: Creatinine -1.01 BUN 14 RADIATION DOSE: CT Rad equipment meets quality standard of care and radiation dose reduction techniq ues were employed. CTDIvol: 10.4 - 14.6 mGy. DLP: 1400 mGy-cm.. LIMITATIONS: None. FINDINGS: LOWER CHEST: Animal atelectasis and or scar at the left lung base. LIVER: Normal size. No masses. No dilated ducts. The hepatic and portal veins are patent. SPLEEN: Normal size. No focal lesions. PANCREAS: No masses. No significant calcifications. No adjacent inflammation or peripancreatic fluid collections. Pancreatic duct not dilated. GALLBLADDER: No identified stones by CT criteria. No inflammatory changes to suggest cholecystitis. ADRENAL GLANDS: No significant masses or asymmetry. RIGHT KIDNEY AND URETER: No solid masses. No significant calcifications. No hydronephrosis or hyd roureter. LEFT KIDNEY AND URETER: No solid masses. No significant calcifications. No hydronephrosis or hydr oureter. AORTA AND VESSELS: No aneurysm. No dissection. Renal arteries, SMA, celiac without stenosis. RETROPERITONEUM: No retroperitoneal adenopathy, hemorrhage or masses. BOWEL AND PERITONEAL CAVITY: No masses or inflammatory changes. No free fluid or peritoneal masses. APPENDIX: Normal. PELVIS: The prostate gland measures 4.5 cm in diameter. No free fluid. Normal bladder. ABDOMINAL WALL: Small fat containing umbilical and right inguinal hernias. The patient has a histor y of prior inguinal hernia repair, probably on the left. Question of recurrent small left inguinal h ernia. BONES: No significant or acute findings. OTHER: No other significant finding. IMPRESSION: 1. Small fat containing umbilical and right inguinal hernias. 2. The patient has a history of prior inguinal hernia repair, probably on the left. Question of rec urrent small left inguinal hernia. TECHNICAL DOCUMENTATION: JOB ID: [id number] Quality ID # [id number]: Final reports with documentation of one or more dose reduction techniques (e.g., Au tomated exposure control, adjustment of the mA and/or kV according to patient size, use of iterative reconstruction technique) 2010 [employer]- All Rights Reserved Reading location - IP/workstation name: [email or web address]
[2019-02-11 17:04] VITALS: BP 133/77
== END 2019-02-11 17:14 | disposition home or self-care (01) ==
LOC: ER 13:11
DX: R10.2 Pelvic and perineal pain (principal); R15.9 Full incontinence of feces; R03.0 Elevated blood-pressure reading, without diagnosis of hypertension; J45.909 Unspecified asthma, uncomplicated
CPT/HCPCS: 99284; 36415; 85025; 80053; 81001; 87491; 87591; 74177; J3490

== ENCOUNTER 2019-05-18 14:22 | Emergency (ER) | payer BC ==
--- NOTE | 2019-05-18 16:07 | RADIOLOGY REPORT (SQ) ---
EXAM DESCRIPTION: WRIST RIGHT 3 VIEWS COMPLETED DATE/TIME: 05/18/2019 3:54 pm REASON FOR STUDY: wrist pain COMPARISON: None. NUMBER OF VIEWS: Three views. TECHNIQUE: AP, lateral, and oblique radiographic images acquired of the right wrist. LIMITATIONS: None. FINDINGS: MINERALIZATION: Normal. BONES: No acute fracture or dislocation. No worrisome bone lesions. Normal alignment. SOFT TISSUES: No soft tissue swelling. No foreign body. OTHER: No other significant finding. IMPRESSION: NEGATIVE STUDY OF THE RIGHT WRIST. NO RADIOGRAPHIC EVIDENCE OF ACUTE INJURY. TECHNICAL DOCUMENTATION: JOB ID: [id number] [employer]- All Rights Reserved Reading location - IP/workstation name: [email or web address]
[2019-05-18] MEDS ORDERED: OXYCODONE-ACETAMINOPHEN 5-325 MG TABLET PO ONE (16:10)
[2019-05-18] MEDS ORDERED: ACETAMINOPHEN 325 MG TABLET PO ONE (16:10)
--- NOTE | 2019-05-18 16:17 | ER Document Report ---
Addendum entered and electronically signed by RENALDO CLARKE PA-C 05/29/19 10:36: Procedures - Immobilization Right Hand Pre-Proc Neuro Vasc Exam: Normal Immobilizer type: Thumb spica Post-Proc Neuro Vasc Exam: Normal Original Note: HPI - HPI Patient complains to provider of: right hand injury Time Seen by Provider: 05/18/19 16:01 Pain Level: 5 Context: 28-year-old male with no past medical history presents to the emergency department with chief complaint of a right hand injury. He was stepping off of his friend's trailer outside and there was not a step there and sustained a FOOSH injury. He did this at 2 AM this morning. He felt immediate pain and has limited range of motion. He iced it immediately. He said he got no relief from the ice. He does have range of motion and has a strong 2+ radial pulse in his hand. No swelling at this time. No elbow or shoulder pain at this time. No other complaints. - REPRODUCTIVE Reproductive: DENIES: : Past Medical History - Social History Smoking Status: Never Smoker Family History: Reviewed & Not Pertinent - Past Medical History Cardiac Medical History: Denies: Hx Coronary Artery Disease, Hx Hypertension Pulmonary Medical History: Reports: Hx Asthma Endocrine Medical History: Denies: Hx Diabetes Mellitus Type 1, Hx Diabetes Mellitus Type 2 Renal/ Medical History: Denies: Hx Peritoneal Dialysis Traumatic Medical History: Reports: Hx Fractures - ANKLE, ELBOW Past Surgical History: Reports: Hx Abdominal Surgery - hernia repair, Hx Inguinal Hernia - repaired - Immunizations Immunizations up to date: Yes Hx Diphtheria, Pertussis, Tetanus Vaccination: Yes Vertical Provider Document - CONSTITUTIONAL Notes: PHYSICAL EXAMINATION: Reviewed vital signs and charting by RN GENERAL: Alert, interacts well. No acute distress. HEAD: Normocephalic, atraumatic. EYES: Pupils equal and round. Extraocular movements intact. ENT: Oral mucosa moist, tongue midline. NECK: Full range of motion. Trachea midline. EXTREMITIES: Moves all 4 extremities spontaneously. No edema, No cyanosis. Patient with limited range of motion to right hand secondary to pain. No edema, no ecchymosis. Patient with snuffbox tenderness. Brisk cap refill and 2+ radial pulse. Sensation intact to light touch. Patient can give me okay sign, thumbs up and move his fingers actively and to resistance. able to flex and extend his wrist although range of motion is limited secondary to pain PSYCH: Normal affect, normal mood. SKIN: Warm, dry, normal turgor. No rashes or lesions noted. - INFECTION CONTROL TRAVEL OUTSIDE OF THE [place] IN LAST 30 DAYS: No Course - Re-evaluation Re-evalutation: 05/18/19 16:17 Overall well-appearing, patient with a right wrist injury. X-ray negative for fracture or dislocation. Patient was significant snuffbox tenderness so he will be placed in a thumb spica and will be given follow-up for orthopedics. At this time he is been given a Percocet 5325 and Tylenol 650 mg p.o. once. He is stable for discharge. - Vital Signs Vital signs: Temp Pulse Resp BP Pulse Ox 97.9 F 72 20 143/88 H 99 05/18/19 14:28 05/18/19 14:28 05/18/19 14:28 05/18/19 14:28 05/18/19 14:28 Discharge - Discharge Clinical Impression: Right wrist injury Qualifiers: Encounter type: initial encounter Qualified Code(s): S69.91XA - Unspecified injury of right wrist, hand and finger(s), initial encounter Condition: Good Disposition: HOME, SELF-CARE Additional Instructions: You were seen in the emergency department for a right wrist injury. Because you are having tenderness in the "snuffbox" area, this is concerning for a potential scaphoid fracture. Sometimes they initially do not show up on x-ray and that is why we placed you in the splint that we did. Please follow-up with orthopedics in the next 3 to 5 days. If your hand starts to turn blue or purple, you lose feeling in it, you develop paralysis, you develop high fever, you develop redness/swelling/warmth, or you have any other concerning symptoms please return to the emergency department for reevaluation. Referrals: KI BECKER PA-C [ALLIED HEALTH PROFESSIONAL] - Follow up in 3-5 days
[2019-05-18 16:30] VITALS: BP 134/88
== END 2019-05-18 16:39 | disposition home or self-care (01) ==
LOC: ER 14:22
PROC: 2W3CX1Z Immobilization of Right Lower Arm using Splint (ICD-10-PCS; principal; 2019-05-18)
DX: S69.91XA Unspecified injury of right wrist, hand and finger(s), initial encounter (principal); W19.XXXA Unspecified fall, initial encounter; J45.909 Unspecified asthma, uncomplicated
CPT/HCPCS: 99283

== ENCOUNTER → 2019-06-12 | Outpatient (CLI) | payer BC ==
--- NOTE | 2019-06-12 15:06 | RADIOLOGY REPORT (SQ) ---
EXAM DESCRIPTION: MRI RT UPPER JOINT WITHOUT COMPLETED DATE/TIME: 06/12/2019 2:51 pm REASON FOR STUDY: M25.531 PAIN IN RIGHT WRIST M25.531 PAIN IN RIGHT WRIST COMPARISON: Right wrist plain films 05/18/2019 TECHNIQUE: Right wrist images acquired and stored on PACS. Multiplanar images include fat sensitive sequences as T1, fluid sensitive sequences as FST2/STIR, cartilage sensitive sequences as FSPD, grad ient echo sequences. LIMITATIONS: None. FINDINGS: BONE MARROW: No alteration of signal to suggest marrow replacement or edema. No occult fra cture. No large osteophytes. CARPAL ALIGNMENT AND ARTICULATION: Normal congruity of sigmoid notch at level of distal RUJ without p ositive or negative ulnar variance. Normal capitolunate angle. No widening of scapholunate articulati on. EFFUSION: None noted. No loose bodies. However, there is a 6 mm craniocaudad by 4 mm AP x 8 mm trans verse synovial cyst along the palmar aspect of the radioscaphoid joint, best shown on sagittal image 7, coronal image 19, and axial image 18. SCAPHOLUNATE LIGAMENT: Intact without tear. LUNATE-TRIQUETRAL LIGAMENT: Intact without tear. TFC COMPLEX: Radial and ulnar attachments normal. Meniscus intact. Extensor carpi ulnaris tendon norm al without tendinopathy. EXTRINSIC LIGAMENTS AND DISTAL RADIO-ULNAR JOINT: Dorsal and volar distal RUJ intact without subluxat ion of the distal ulna. 1-6 EXTENSOR COMPARTMENTS: Normal. Specifically no tendinopathy of the abductor pollicis longus or ex tensor pollicis brevis to suggest de Quervain's Syndrome. CARPAL TUNNEL AND MEDIAN NERVE: Normal volume and morphology of the carpal tunnel proximally at the l evel of the radiocarpal joint and distally at the hook of the hamate. No thickening or signal alterat ion of the median nerve. OTHER: No other significant finding. IMPRESSION: Small ganglion cyst along the palmar aspect of the wrist at the level of the radioscapho id joint TECHNICAL DOCUMENTATION: JOB ID: [id number] [employer]- All Rights Reserved Reading location - IP/workstation name: [email or web address]
== END ==
LOC: RAD 13:50
PROVIDERS: ATTEND Orthopaedic Surgery
DX: M67.431 Ganglion, right wrist (principal); M25.531 Pain in right wrist

== ENCOUNTER 2020-01-29 23:55 | Emergency (ER) | payer BC ==
[2020-01-30] MEDS ORDERED: ONDANSETRON 4 MG TAB.RAPDIS PO ONE (00:21)
--- NOTE | 2020-01-30 00:22 | ER Document Report ---
ED Medical Screen (RME) - General Chief Complaint: Vomiting/Diarrhea Stated Complaint: VOMITING/DIARRHEA Time Seen by Provider: 01/30/20 00:20 Primary Care Provider: RAJAT RICHMOND MD [Primary Care Provider] - Follow up as needed TRAVEL OUTSIDE OF THE [place] IN LAST 30 DAYS: No - HPI Notes: 01/30/20 00:21 Patient is a 29-year-old male no significant past medical history presents c omplaint of nausea, vomiting, watery diarrhea that began at 3 AM this morning. Patient states that he is feeling some body aches and feeling weak. He felt feverish earlier today. No chest pain or shortness of breath. No URI symptoms. I have treated and performed a rapid initial assessment of this patient. A comprehensive ED assessment and evaluation of the patient, analysis of test results and completion of medical decision making process will be conducted by additional ED providers. PHYSICAL EXAMINATION: GENERAL: Well-appearing, well-nourished and in no acute distress. A&Ox4. Answers questions appropriately. Abdomen: Limited exam in triage, abdomen is soft and grossly nontender. - Related Data Allergies/Adverse Reactions: Echinacea Allergy (Verified 05/18/19 14:29) Past Medical History - Social History Family history: None - Past Medical History Cardiac Medical History: Denies: Hx Coronary Artery Disease, Hx Hypertension Pulmonary Medical History: Reports: Hx Asthma Endocrine Medical History: Denies: Hx Diabetes Mellitus Type 1, Hx Diabetes Mellitus Type 2 Renal/ Medical History: Denies: Hx Peritoneal Dialysis Traumatic Medical History: Reports: Hx Fractures - ANKLE, ELBOW Past Surgical History: Reports: Hx Abdominal Surgery - hernia repair, Hx Inguinal Hernia - repaired - Immunizations Immunizations up to date: Yes Hx Diphtheria, Pertussis, Tetanus Vaccination: Yes Physical Exam - Vital signs Vitals: Temp Pulse Resp BP Pulse Ox 99.0 F 78 20 153/86 H 94 01/30/20 00:11 01/30/20 00:11 01/30/20 00:11 01/30/20 00:11 01/30/20 00:11 Course - Vital Signs Vital signs: Temp Pulse Resp BP Pulse Ox 99.0 F 78 20 153/86 H 94 01/30/20 00:11 01/30/20 00:11 01/30/20 00:11 01/30/20 00:11 01/30/20 00:11 Doctor's Discharge - Discharge Referrals: RAJAT RICHMOND MD [Primary Care Provider] - Follow up as needed
[2020-01-30 00:49] LABS: ABSOLUTE LYMPHOCYTES (AUTO) 0.6 10^3/uL (0.5-4.7); ABSOLUTE MONOCYTES (AUTO) 0.3 10^3/uL (0.1-1.4); ABSOLUTE NEUT (AUTO) 7.4 10^3/uL (1.7-8.2); BASOPHILS % (AUTO) 0.4 % (0-2); EOSINOPHILS % (AUTO) 0.4 % (0-6); HEMATOCRIT 48.3 % (37.9-51.0); HEMOGLOBIN 16.8 g/dL (13.5-17.0); LYMPHOCYTES % (AUTO) 7.5 % (13-45); MEAN CORPUSCULAR HEMOGLOBIN 30.8 pg (27.0-33.4); MEAN CORPUSCULAR HGB CONC 34.9 g/dL (32.0-36.0); MEAN CORPUSCULAR VOLUME 88 fl (80-97); MONOCYTES % (AUTO) 3.5 % (3-13); PLATELET COUNT 230 10^3/uL (150-450); RED BLOOD COUNT 5.47 10^6/uL (4.35-5.55); RED CELL DISTRIBUTION WIDTH 13.3 % (11.5-14.0); SEGMENTED NEUTROPHILS % (AUTO) 88.2 % (42-78); TOTAL CELLS COUNTED % (AUTO) 100 %; WHITE BLOOD COUNT 8.4 10^3/uL (4.0-10.5)
[2020-01-30 01:05] LABS: ALBUMIN 4.5 g/dL (3.5-5.0); ALKALINE PHOSPHATASE 60 U/L (38-126); ANION GAP 10 (5-19); APPEARANCE,URINE SLIGHTLY-CLOUDY; ASPARTATE AMINO TRANSFERASE 35 U/L (17-59); BILIRUBIN,DIRECT 0.2 mg/dL (0.0-0.4); BILIRUBIN,TOTAL 0.7 mg/dL (0.2-1.3); BILIRUBIN,URINE NEGATIVE (NEGATIVE); BLOOD UREA NITROGEN 22 mg/dL (7-20); CALCIUM 8.9 mg/dL (8.4-10.2); CARBON DIOXIDE 30 mmol/L (22-30); CHLORIDE 100 mmol/L (98-107); COLOR,URINE YELLOW; GLUCOSE 93 mg/dL (75-110); GLUCOSE, URINE NEGATIVE (NEGATIVE); KETONES,URINE NEGATIVE (NEGATIVE); POTASSIUM 3.9 mmol/L (3.6-5.0); PROTEIN,URINE 30 mg/dL (NEGATIVE); TOTAL PROTEIN 7.6 g/dL (6.3-8.2); URINE SPECIFIC GRAVITY 1.033
[2020-01-30] MEDS ORDERED: KETOROLAC TROMETHAMINE INJ/PF 30 MG/1 ML SDV IV ONE (02:29)
--- NOTE | 2020-01-30 02:30 | ER Document Report ---
Entered by ANTONINA MOON SCRIBE 01/30/20 0207 Acting as scribe for:KATHERINE FLANNERY MD ED GI/ - General Chief Complaint: Nausea/Vomiting/Diarrhea Stated Complaint: VOMITING/DIARRHEA Time Seen by Provider: 01/30/20 00:20 Primary Care Provider: RAJAT RICHMOND MD [ACTIVE STAFF] - Follow up as needed Mode of Arrival: Ambulatory Information source: Patient Notes: This 29 year old male patient with no significant past medical history presents to the ED today with complaints of nausea,vomiting, and diarrhea that started around 0300 yesterday morning. Patient also reports body aches, subjective fevers, and generalized weakness. Patient states that his son presented with similar symptoms a couple of days ago, but has since resolved. Patient denies chest pain or shortness of breath. TRAVEL OUTSIDE OF THE [place] IN LAST 30 DAYS: No - Related Data Allergies/Adverse Reactions: Echinacea Allergy (Verified 01/30/20 00:23) Past Medical History - General Information source: Patient - Social History Smoking Status: Former Smoker - quit x14 months ago Cigarette use (# per day): No Chew tobacco use (# tins/day): No Smoking Education Provided: No Frequency of alcohol use: Occasional Drug Abuse: Marijuana Occupation: [employer] sales Family History: Reviewed & Not Pertinent Patient has suicidal ideation: No Patient has homicidal ideation: No Pulmonary Medical History: Reports: Hx Asthma Traumatic Medical History: Reports: Hx Fractures - ANKLE, ELBOW Past Surgical History: Reports: Hx Inguinal Hernia - Left; repaired - Immunizations Immunizations up to date: Yes Hx Diphtheria, Pertussis, Tetanus Vaccination: Yes Review of Systems - Review of Systems Constitutional: See HPI, Fever, Weakness EENT: No symptoms reported Cardiovascular: See HPI. denies: Chest pain Respiratory: See HPI. denies: Short of breath Gastrointestinal: See HPI, Diarrhea, Nausea, Vomiting Genitourinary: No symptoms reported Male Genitourinary: No symptoms reported Musculoskeletal: See HPI, Other - Body aches Skin: No symptoms reported Hematologic/Lymphatic: No symptoms reported Neurological/Psychological: No symptoms reported -: Yes All other systems reviewed and negative Physical Exam - Vital signs Vitals: Temp Pulse Resp BP Pulse Ox 99.0 F 78 20 153/86 H 94 01/30/20 00:11 01/30/20 00:11 01/30/20 00:11 01/30/20 00:11 01/30/20 00:11 - General General appearance: Alert - HEENT Head: Normocephalic, Atraumatic Eyes: Normal Pupils: PERRL Mucous membranes: Dry - Respiratory Respiratory status: No respiratory distress Chest status: Nontender Breath sounds: Normal Chest palpation: Normal - Cardiovascular Rhythm: Regular Heart sounds: Normal auscultation Murmur: No - Abdominal Inspection: Normal Distension: No distension Bowel sounds: Normal Tenderness: Tender - Abdomen is diffusely tender to palpate. Percussion dull. Organomegaly: No organomegaly - Back Back: Normal, Nontender - Extremities General upper extremity: Normal inspection General lower extremity: Normal inspection - Neurological Neuro grossly intact: Yes - Psychological Associated symptoms: Normal affect, Normal mood - Skin Skin Temperature: Warm Skin Moisture: Dry Skin Color: Normal Course - Re-evaluation Re-evalutation: 01/30/20 04:37 Patient reports he is feeling much better. There is no nauseousness. He is just tired and sleepy at this time. He has not been able to provide a stool specimen and still does not feel like he needs to go. He states he can hear and feel his abdomen rumbling but has no urge to defecate. - Vital Signs Vital signs: Temp Pulse Resp BP Pulse Ox 97.9 F 86 21 H 110/65 94 01/30/20 04:30 01/30/20 04:30 01/30/20 04:30 01/30/20 04:30 01/30/20 04:30 - Laboratory Result Diagrams: 01/30/20 00:35 01/30/20 00:35 Laboratory results interpreted by me: 01/30/20 01/30/20 01/30/20 00:35 00:35 00:35 Lymph % (Auto) 7.5 L Seg Neutrophils % 88.2 H BUN 22 H ALT 57 H Urine Protein 30 H Urine Urobilinogen 2.0 H Discharge - Discharge Clinical Impression: Nausea, vomiting and diarrhea Condition: Stable Disposition: HOME, SELF-CARE Additional Instructions: Gastroenteritis You most likely have gastroenteritis. This is an irritation of the stomach and intestinal tract. It's usually caused by a virus, but can also be caused by bacteria, toxins that cause food poisoning, or excessive alcohol intake. Symptoms may include fever, painful abdominal cramps, nausea, vomiting, and diarrhea. Start with small amounts (two to six ounces) of clear liquids (soft drinks, herb teas, broth, etc). Try to take fluids frequently even if you are vomiting, to prevent dehydration. When liquids are being consumed successfully, advance to small amounts of bland food (mashed potato, toast) for 6 - 12 hours. Gastroenteritis rarely requires medication. It goes away by itself. Use good handwashing so you don't spread germs. Wash underwear in very hot water. If symptoms are severe, talk to the doctor. Call your physician if blood appears in your vomitus or stool, if vomiting lasts longer than 24 hours, if the abdominal pain worsens or becomes localized to one area, or if you develop high fever. Drink cool clear liquids for the next several hours. Try Pepto-Bismol or Imodium right ear if the diarrhea continues. Take the Zofran as dispensed for nausea if needed. Follow-up with your primary care provider if not improving. RETURN TO THE EMERGENCY ROOM IF ANY NEW OR WORSENING SYMPTOMS. Forms: Return to Work Referrals: RAJAT RICHMOND MD [ACTIVE STAFF] - Follow up as needed I personally performed the services described in the documentation, reviewed and edited the documentation which was dictated to the scribe in my presence, and it accurately records my words and actions.
[2020-01-30] MEDS: NORMAL SALINE 1000 ML 1,000 ML IV PRN ×2 (02:37→03:30)
[2020-01-30 04:31] VITALS: BP 110/65
[2020-01-30] MEDS ORDERED: ONDANSETRON ODT 4 MG TAB (6 TAB/ER DISP) PO PRN (04:37)
== END 2020-01-30 04:48 | disposition home or self-care (01) ==
LOC: ER 23:55
DX: R11.2 Nausea with vomiting, unspecified (principal); R19.7 Diarrhea, unspecified; R53.1 Weakness; R50.9 Fever, unspecified; R10.817 Generalized abdominal tenderness; J45.909 Unspecified asthma, uncomplicated; F12.10 Cannabis abuse, uncomplicated; Z87.891 Personal history of nicotine dependence; Z88.8 Allergy status to other drugs, medicaments and biological substances
CPT/HCPCS: 99284; 96361; 96374; 36415; 83690; 85025; 80053; 81001; S0119; J1885; J7030

== ENCOUNTER 2020-09-16 08:25 | Day surgery (SDC) | payer BC ==
[2020-09-13 11:21] LABS: ABSOLUTE EOSINOPHILS # (AUTO) 0.1 10^3/uL (0.0-0.6); ABSOLUTE LYMPHOCYTES (AUTO) 1.9 10^3/uL (0.5-4.7); ABSOLUTE MONOCYTES (AUTO) 0.5 10^3/uL (0.1-1.4); ABSOLUTE NEUT (AUTO) 3.2 10^3/uL (1.7-8.2); BASOPHILS % (AUTO) 0.6 % (0-2); EOSINOPHILS % (AUTO) 2.6 % (0-6); HEMATOCRIT 44.5 % (37.9-51.0); HEMOGLOBIN 15.4 g/dL (13.5-17.0); LYMPHOCYTES % (AUTO) 32.6 % (13-45); MEAN CORPUSCULAR HEMOGLOBIN 31.1 pg (27.0-33.4); MEAN CORPUSCULAR HGB CONC 34.5 g/dL (32.0-36.0); MEAN CORPUSCULAR VOLUME 90 fl (80-97); MONOCYTES % (AUTO) 8.9 % (3-13); PLATELET COUNT 209 10^3/uL (150-450); RED BLOOD COUNT 4.93 10^6/uL (4.35-5.55); RED CELL DISTRIBUTION WIDTH 13.3 % (11.5-14.0); SEGMENTED NEUTROPHILS % (AUTO) 55.3 % (42-78); TOTAL CELLS COUNTED % (AUTO) 100 %; WHITE BLOOD COUNT 5.8 10^3/uL (4.0-10.5)
[~2020-09-16 08:25] MED LIST changes: +CEFAZOLIN 2 GM/D5W RTU 2 GM/50 ML RTUPB IV PRN; +DEXAMETHASONE SOD PHOSPHATE INJ 4 MG/1 ML VIAL ONE; +FENTANYL CITRATE INJ/PF 100 MCG/2 ML AMPUL ONE; +KETOROLAC TROMETHAMINE 60 MG/2 ML SDV ONE; +LACTATED RINGERS 1000 ML IV PRN; +LIDOCAINE 0.5% INJ-PF (5 MG/ML) 50 ML SDV SUBCUT PRN; +MIDAZOLAM 2 MG/2 ML INJ ONE; +ONDANSETRON HCL INJ/PF 4 MG/2 ML SDV ONE; +PROPOFOL INJ 200 MG/20 ML VIAL IV ONE; -SUCCINYLCHOLINE CHLORIDE INJ 200 MG/10 ML VIAL ONE
[2020-09-16] MEDS ORDERED: CEFAZOLIN 2 GM/D5W RTU 2 GM/50 ML RTUPB IV ONE (08:34)
[2020-09-16] MEDS ORDERED: BUPIVACAINE INJ/PF LIPOSOME/PF 266 MG/20 ML SDV ONE (10:00)
[2020-09-16] MEDS ORDERED: MORPHINE SULFATE 10 MG/ML INJ IV PRN (10:37)
[2020-09-16] MEDS ORDERED: PROMETHAZINE HCL INJ 25 MG/1 ML VIAL IV PRN ×2 (10:37)
[2020-09-16] MEDS ORDERED: MEPERIDINE HCL/PF INJ 25 MG/1 ML DISP.SYRIN IV PRN (10:37)
[2020-09-16] MEDS ORDERED: DIPHENHYDRAMINE HCL 50 MG/ML VIAL IV PRN (10:37)
[2020-09-16] MEDS ORDERED: OXYCODONE-ACETAMINOPHEN 5-325 MG TABLET PO PRN ×2 (10:37)
[2020-09-16] MEDS ORDERED: FENTANYL CITRATE INJ/PF 100 MCG/2 ML AMPUL IV PRN ×3 (10:37)
[2020-09-16] MEDS ORDERED: ONDANSETRON HCL INJ/PF 4 MG/2 ML SDV IV PRN (10:37)
--- NOTE | 2020-09-16 11:48 | Operative Report ---
Nonrecallable Operative Report DATE OF SURGERY: 09/16/20 PREOPERATIVE DIAGNOSIS: Recurrent left inguinal hernia right inguinal hernia umbilical hernia chronic constipation POSTOPERATIVE DIAGNOSIS: Same as preop OPERATION: Laparoscopic bilateral inguinal hernia repair umbilical hernia repair colonoscopy SURGEON: ERIBERTO MENDEZ 1ST LICENSED CERTIFIED ORTHOTIST: VARSHA DONOVAN ANESTHESIA: GA TISSUE REMOVED OR ALTERED: None COMPLICATIONS: None ESTIMATED BLOOD LOSS: 5 cc PROCEDURE: Induced under general anesthesia intubated. After appropriate timeout and site verification the procedure commenced. A curvilinear infraumbilical incision was made with a 15 blade dissection was carried out through subtenons tissue with Bovie cautery reaching the base of the umbilical stalk there is a punctate hernia umbilical with some incarcerated fat that was excised and then this was extended laterally on the right side to gain access to the posterior sheath. After gaining access to the posterior sheath we used the spacemaker balloon post and placed it on the posterior sheath and advanced into the pubic symphysis. We then under direct vision insufflated the retroperitoneum. We also get good visualization of the retroperitoneum. We created a good space after removing the spacemaker balloon. Attention was turned to the left side first I noted some previously placed Ethibond sutures and what looked like a stump of the hernia sac however we mobilized the peritoneum laterally away from the transversalis muscle continue this posteriorly and medially to be identified some scar tissue and the cord structures cord structures seem to have a second sac extending anteriorly cord structures it very much like a pantaloon hernia that extended into the internal ring. We mobilized this out of the internal ring and then mobilized the scar tissue with the previously placed sutures within it and appeared to be that there was some balled up piece of mesh may be a mesh plug that was extending out into the retroperitoneum from the internal ring. I used Bovie cautery to cut this mesh away. Now that we had at all flat and the mesh removed I fashioned a piece of polypropylene mesh with 2 tails and placed it into the retroperitoneum and fixed it posteriorly to Saurabh's ligament anterior to the rectus muscle l aterally to the transversalis muscle and wrapped the cord. This covered the internal ring as well as the secondary hernia defect that I noted. Once this was accomplished we turned attention to the right side. Similarly on the right side we mobilized the peritoneum away from the transversalis fascia laterally we continued this dissection posteriorly and inferiorly to identify the Saurabh's ligament cord structures and we noted that the periperitoneal sac entered at the internal ring. This was mobilized up out of the ring as well as a lipoma of the cord which was removed. This identified the hernia on the right side which was a indirect inguinal hernia. Once the peritoneum was mobilized away from the cord structures we placed a piece of polypropylene mesh 6 cm x 3 cm wide with a slit down the side for the tails placed into the retroperitoneum fixed it posteriorly to Saurabh's ligament anterior to the rectus muscle laterally to transversalis muscle being careful not to injure the lateral femoral cutaneous nerve as we did on the left. Once this was accomplished we reduce the pneumo retroperitoneum and allowed the peritoneal structures to come up against the mesh and hold it in place better. We then turned attention to the umbilical incision we noted the fascial defect that was created to gain access to the retroperitoneum as well as the small punctate hernia this was all closed in a unit with interrupted placed 0 Vicryl sutures the skin was closed with intracuticular 4-0 Biosyn. The other 2 5 mm ports were placed under direct vision initially were also closed with 4-0 Bi osyn. The patient was then turned to lie in a left lateral decubitus position for colonoscopy. The Olympus colonoscope was passed into the rectum and the bowel prep was moderate to poor. We advanced the colonoscope through the rectosigmoid into the descending colon and then as we advanced further up there was worse and worse prep that was noted. There is more more stool that could be seen. We slowly advance the scope to the splenic flexure transverse colon hepatic flexure and then to the descending colon where we identified the cecum. Was a large amount of stool covering all the cecum with a lot of this was washed away I did not notice any obvious polyps. We slowly pulled the scope back identifying the 8 descending colon noting no evidence of any significant polyps the hepatic flexu re was visualized it was as well as the transverse colon that appeared to be normal we slowly pulled the scope back to the splenic flexure and then the descending colon as we reached the sigmoid colon we noted a moderate amount of diverticulosis. Again there was no mucosal defects or polyps to be biopsied or removed. The scope was then slowly withdrawn. Patient was then placed back in a supine position. This completed the procedure. DARRION Partida was present for the entire procedure help with wound retraction wound closure. Sponge needle counts were correct x2 blood loss was less than 5 cc the patient was awakened in the operating extubated transferred recovery in stable condition.
[2020-09-16] MEDS ORDERED: HYDROCODONE/ACETAMINOPHEN 10-325 MG TABLET PO PRN (11:57)
--- NOTE | 2020-09-16 11:57 | Discharge Summary ---
Discharge Summary (SDC) - Discharge Final Diagnosis: Chronic constipation umbilical hernia bilateral inguinal hernia Date of Surgery: 09/16/20 Discharge Date: 09/16/20 Condition: Good Prescriptions: Hydrocodone/Acetaminophen [Deport 10-325 mg Tablet] 1 tab PO Q6HP PRN #15 tablet PRN Reason: Discharge Diet: As Tolerated Discharge Activity: No Lifting Over 10 Pounds Report the Following to Your Physician Immediately: Increase in Pain, Unusual Bleeding
[2020-09-16] MEDS ORDERED: VECURONIUM BROMIDE INJ 10 MG VIAL IV ONE (12:00)
[2020-09-16] MEDS ORDERED: NORMAL SALINE INJ/PF 0.9% 10 ML SDV ONE (12:00)
[2020-09-16] MEDS ORDERED: GLYCOPYRROLATE 1 MG/5 ML VIAL ONE (12:00)
[2020-09-16] MEDS ORDERED: NEOSTIGMINE METHYLSULFATE 10 MG/10 ML VIAL ONE (12:00)
[2020-09-16] MEDS ORDERED: SUCCINYLCHOLINE CHLORIDE INJ 200 MG/10 ML VIAL ONE (12:00)
[2020-09-16] MEDS ORDERED: HYDROCODONE/ACETAMINOPHEN 10-325 MG TABLET ONE (12:44)
[2020-09-16 15:50] VITALS: BP 115/75
== END 2020-09-16 13:55 | disposition home or self-care (01) ==
LOC: OROUT 08:25
PROVIDERS: ATTEND Surgery
DX: K40.21 Bilateral inguinal hernia, without obstruction or gangrene, recurrent (principal); K42.0 Umbilical hernia with obstruction, without gangrene; K59.09 Other constipation; D17.6 Benign lipomatous neoplasm of spermatic cord; Z03.818 Encounter for observation for suspected exposure to other biological agents ruled out; Z87.891 Personal history of nicotine dependence; Z98.890 Other specified postprocedural states
CPT/HCPCS: 36415; 85025; 49651; 49653; 45378; U0003; J2250; J1100; J1885; J3010; J3490 ×3; J2710; J0330; J2405; J2704; J0690; C9290; C9803; 840; 87635; C1713; C1781

== ENCOUNTER → 2020-11-01 | Outpatient (CLI) | payer BC ==
--- NOTE | 2020-11-01 10:27 | RADIOLOGY REPORT (SQ) ---
EXAM DESCRIPTION: CT ABD/PELVIS WITH IV ORAL IMAGES COMPLETED DATE/TIME: 11/01/2020 9:37 am REASON FOR STUDY: GENERALIZED ABDOMINAL PAIN R10.84 GENERALIZED ABDOMINAL PAIN COMPARISON: None. TECHNIQUE: CT scan of the abdomen and pelvis performed using helical scanning technique with dynamic intravenous contrast injection. No oral contrast. Images reviewed with lung, soft tissue, and bone windows. Reconstructed coronal and sagittal MPR images reviewed. Delayed images for evaluation of the urinary system also acquired. All images stored on PACS. All CT scanners at this facility use dose modulation, iterative reconstruction, and/or weight based d osing when appropriate to reduce radiation dose to as low as reasonably achievable (ALARA). [facility]: Dose Right [facility]: CareDose [facility]: Dose Right [facility]: Teradose 4D [facility]: Prisync CONTRAST TYPE AND DOSE: Contrast/concentration: Isovue 350.00 mmol/ml; Total Contrast Delivered: 100 .0 ml; Total Saline Delivered: 44.9 ml RENAL FUNCTION: GFR > 60. RADIATION DOSE: CT Rad equipment meets quality standard of care and radiation dose reduction techniq ues were employed. CTDIvol: 10.4 - 10.5 mGy. DLP: 1156 mGy-cm. LIMITATIONS: None. FINDINGS: LOWER CHEST: No acute abnormality. LIVER: The morphology of the liver is noncirrhotic. The 8 mm hypervascular lesion in the posterior a spect of the right hepatic lobe (image 21 of series 2) is unchanged and could represent a flash filli ng hemangioma. The portal veins are patent. SPLEEN: No splenomegaly or splenic mass. PANCREAS: No acute gross abnormality of the pancreas. GALLBLADDER: No acute gross abnormality of the gallbladder. ADRENAL GLANDS: No mass or asymmetry. RIGHT KIDNEY AND URETER: No solid mass, hydronephrosis, nephrolithiasis, hydroureter or ureterolithia sis. LEFT KIDNEY AND URETER: No solid mass, hydronephrosis, nephrolithiasis, hydroureter or ureterolithia sis. AORTA AND VESSELS: No aneurysm or dissection of the abdominal aorta. RETROPERITONEUM: No retroperitoneal adenopathy, hemorrhage or mass. BOWEL AND PERITONEAL CAVITY: Long segment of circumferential wall thickening involving the splenic fl exure, descending colon and proximal sigmoid colon. There is no associated pericolonic inflammation or bowel obstruction. There is increased fat stranding in the left lower quadrant (deep to the left inferior epigastric art santino). There is no free intraperitoneal fluid or mesenteric/ omental inflammation. APPENDIX: Normal. PELVIS: The urinary bladder is partially distended in the urinary bladder wall is diffusely thickened . ABDOMINAL WALL: Fat containing paraumbilical hernia (image 52 of series 2). BONES: No acute abnormality. OTHER: No other findings. IMPRESSION: 1. Long segment of circumferential wall thickening involving the splenic flexure, desce nding colon and proximal sigmoid colon. Correlation with clinical findings for signs and symptoms of a nonspecific ischemic, inflammatory or infectious colitis is recommended. 2. Increased fat stranding in the left lower quadrant (deep to the left inferior epigastric artery) - does the patient have a history of prior inguinal hernia repair? 3. Mild circumferential thickening of the urinary bladder - correlation with urinalysis is recommend ed to exclude an acute cystitis. 4. Stable 8 mm hypervascular lesion in the right hepatic lobe that likely represents a flash filling hemangioma. TECHNICAL DOCUMENTATION: JOB ID: [id number] Quality ID # [id number]: Final reports with documentation of one or more dose reduction techniques (e.g., Au tomated exposure control, adjustment of the mA and/or kV according to patient size, use of iterative reconstruction technique) 2010 [employer]- All Rights Reserved Reading location - IP/workstation name: [email or web address]
== END ==
LOC: RAD 09:10
PROVIDERS: ATTEND Surgery
DX: R10.84 Generalized abdominal pain (principal); K76.9 Liver disease, unspecified
CPT/HCPCS: 74177